=== PATIENT | female | born 1975 | race Hispanic/Latino ===

== ENCOUNTER 2019-02-01 18:36 | Emergency (ER) | payer SELFPAY ==
[2019-02-01] MEDS ORDERED: cloNIDine HCl 0.1 MG TAB ONE (19:43)
[2019-02-01] MEDS ORDERED: NA CHLORIDE 0.9% 500 ML ONE (19:44)
[2019-02-01] MEDS ORDERED: MEPERIDINE HCL 25 MG/0.5 ML ONE (19:44)
[2019-02-01] MEDS ORDERED: ONDANSETRON 4 MG/2 ML VIAL ONE (19:44)
--- NOTE | 2019-02-01 19:56 | RAD REPORT ---
EXAM DESCRIPTION: CT - Head Brain Wo Cont - 02/01/2019 7:42 pm CLINICAL HISTORY: Headache COMPARISON: None. TECHNIQUE: Computed axial tomography of the head was obtained. IV contrast was not requested. All CT scans are performed using dose optimization technique as appropriate and may include automated exposure control or mA/KV adjustment according to patient size. FINDINGS: An intracranial bleed is not seen . The ventricles are normal in caliber. No extra-axial fluid collection is noted. Fluid within the sinuses/ mastoids is not seen. IMPRESSION: No acute intracranial abnormality is seen. If patient's symptoms persist MRI of the bra in would be recommended.
[2019-02-01 20:24] LABS: Urine Blood TRACE (NEG); Urine Glucose NEGATIVE (NEG); Urine Protein 3+ (NEG)
[2019-02-01 20:36] LABS: BUN Blood Urea Nitrogen 16 mg/dL (7-18); Bicarbonate 29 mmol/L (21-32); Glucose Level 92 mg/dL (74-106); Potassium 3.9 mmol/L (3.5-5.1); Sodium Level 142 mmol/L (136-145); Troponin (Emerg Dept Use Only) < 0.02 ng/mL (0.0-0.045)
[2019-02-01 21:16] LABS: Absolute Lymphocytes (CBC) 2.2 K/uL (0.7-4.9); Basophils % 0.8 % (0-1.3); Lymphocytes % 26.7 % (15.3-44.8); MPV 10.1 fL (7.6-11.3); RBC Red Blood Cell Count 4.87 M/uL (3.86-4.86)
--- NOTE | 2019-02-01 22:32 | EDPHYS ---
Physician Documentation [facility] Name: Kiarra Kidd Age: 43 yrs Sex: Female : 1975 Arrival Date: 02/01/2019 Time: 18:39 Bed 16 Private MD: ED Physician Kelton Segovia HPI: 02/01 19:28 This 43 yrs old Female presents to ER via Wheelchair with complaints of High rn Blood Pressure, Nausea, Dizziness, Headache. 19:28 The patient complains of pain to the forehead. The patient describes the headache as rn aching. Onset: The symptoms/episode began/occurred today. Severity of symptoms: At its worst the pain was mild, in the emergency department the pain is unchanged. The symptoms are alleviated by nothing. the symptoms are aggravated by nothing. The patient has not experienced similar symptoms in the past. Reports dizziness and lightheaded that began around 1PM today, then slowly progressed to headache and not feeling well, assoc with nausea. No vomiting. No chest pain/sob. No abd pain. Reports prescribed HTN meds but moved here and no physician so has been out. No focal neurological complaints. No syncope.. 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 - Social history:: Smoking status: Patient/guardian denies using tobacco. - Ebola Screening: : No symptoms or risks identified at this time. - Family history:: not pertinent. - Hospitalizations: : No recent hospitalization is reported. ROS: 19:28 Constitutional: Negative for fever, chills, and weight loss, Eyes: Negative for injury, rn pain, redness, and discharge, Neck: Negative for injury, pain, and swelling, Cardiovascular: Negative for chest pain, palpitations, and edema, Respiratory: Negative for shortness of breath, cough, wheezing, and pleuritic chest pain, Abdomen/GI: Negative for abdominal pain, vomiting, diarrhea, and constipation, MS/Extremity: Negative for injury and deformity, Skin: Negative for injury, rash, and discoloration, Neuro: Negative for weakness, and seizure. Exam: 19:28 Constitutional: This is a well developed, well nourished patient who is awake, alert, rn and in no acute distress. Ambulatory to bed from wheelchair without assistance. Head/Face: Normocephalic, atraumatic. Eyes: Pupils equal round and reactive to light, extra-ocular motions intact. Lids and lashes normal. Conjunctiva and sclera are non-icteric and not injected. Cornea within normal limits. Periorbital areas with no swelling, redness, or edema. ENT: MMM Neck: Trachea midline, no thyromegaly or masses palpated, and no cervical lymphadenopathy. Supple, full range of motion without nuchal rigidity, or vertebral point tenderness. No Meningismus. Cardiovascular: Regular rate and rhythm. No pulse deficits. Respiratory: No increased work of breathing, no retractions or nasal flaring. Abdomen/GI: soft, non-tender MS/ Extremity: Pulses equal, no cyanosis. Neurovascular intact. Full, normal range of motion. Equal circumference. Neuro: Awake and alert, GCS 15, oriented to person, place, time, and situation. Cranial nerves II-XII grossly intact. Motor strength 5/5 in all extremities. Cerebellar exam normal. Normal gait. Decreased sensation to soft touch right face and right arm/leg. 22:32 ECG was reviewed by the Attending Physician. rn Vital Signs: 18:44 BP 171 / 103; Pulse 88; Resp 20; Temp 97.7; Pulse Ox 100% ; Weight 77.11 kg; Height 5 bp ft. 1 in. (154.94 cm); 19:50 BP 171 / 97; Pulse 73; Resp 17; Pulse Ox 98% ; Pain 8/10; rr5 20:57 BP 147 / 87; Pulse 65; Resp 16; Pulse Ox 98% ; Pain 3/10; rr5 22:00 BP 141 / 89; Pulse 75; Resp 17; Pulse Ox 98% ; Pain 3/10; rr5 22:48 BP 139 / 86; Pulse 69; Resp 17; Temp 97.8; Pulse Ox 98% ; rr5 18:44 Body Mass Index 32.12 (77.11 kg, 154.94 cm) bp [place] Coma Score: 22:30 Eye Response: spontaneous(4). Verbal Response: oriented(5). Motor Response: obeys rn commands(6). Total: 15. MDM: 19:18 Patient medically screened. rn 22:30 Differential diagnosis: hypertensive headache, migraine, tension headache, vasomotor rn headache. Differential diagnosis: intracerebral hemorrhage. Data reviewed: vital signs, nurses notes, lab test result(s), EKG, radiologic studies, CT scan, and as a result, I will discharge patient. Counseling: I had a detailed discussion with the patient and/or guardian regarding: the historical points, exam findings, and any diagnostic results supporting the discharge/admit diagnosis, the presence of at least one elevated blood pressure reading (>120/80) during this emergency department visit, lab results, radiology results, the need for outpatient follow up, to return to the emergency department if symptoms worsen or persist or if there are any questions or concerns that arise at home. Special discussion: I have referred the patient to see his PCP for further evaluation of high blood pressure. I discussed with the patient/guardian in detail that at this point there is no indication for admission to the hospital. It is understood, however, that if the symptoms persist or worsen the patient needs to return immediately for re-evaluation. ED course: Symptoms resolved after improvement of BP. Now 147/87. Neg ct without and CTA head/neck. Will dc home. Trop neg. ECG without ischemia.. 02/01 19: Order name: CBC with Diff; Complete Time: 21:22 02/01 19:26 Order name: Basic Metabolic Panel; Complete Time: 20: 02/01 19:26 Order name: Troponin (emerg Dept Use Only); Complete Time: 20:52 02/01 19:26 Order name: Flu; Complete Time: 20:52 02/01 20:00 Order name: Urine Dipstick--Ancillary (enter results); Complete Time: 20:52 [facility] 02/01 20:00 Order name: Urine --Ancillary (enter results); Complete Time: 20:52 [facility] 02/01 19:26 Order name: CT Head Brain wo Cont; Complete Time: 20:52 02/01 19:26 Order name: IV Start; Complete Time: 20:10 02/01 19:26 Order name: EKG; Complete Time: 19:28 02/01 20:52 Order name: CT Head Angio 02/01 19:26 Order name: EKG - Nurse/Tech; Complete Time: 20: 02/01 19:26 Order name: Urine Dipstick-Ancillary (obtain specimen); Complete Time: 19:59 rn 02/01 19: Order name: Urine Test (obtain specimen); Complete Time: 19:59 rn EC:32 Rate is 62 beats/min. Rhythm is regular. QRS [place] is Normal. [place] interval is normal. QRS rn interval is normal. QT interval is normal. No Q waves. T waves are Normal. No ST changes noted. Clinical impression: NSR w/ Non-specific ST/T Changes. Interpreted by me. Reviewed by me. Administered Medications: 19:50 Drug: cloNIDine 0.1 mg Route: PO; rr5 20:50 Follow up: Response: Blood pressure is lowered rr5 19:55 Drug: NS 0.9% 500 ml Route: IV; Rate: bolus; Site: left antecubital; rr5 21:30 Follow up: Response: No adverse reaction; IV Status: Completed infusion; IV Intake: rr5 500ml 19:56 Drug: Zofran 4 mg Route: IVP; Site: left antecubital; rr5 21:00 Follow up: Response: No adverse reaction; Marked relief of symptoms rr5 19:58 Drug: Demerol 25 mg {Note: rass 0.} Route: IVP; Site: left antecubital; rr5 21:00 Follow up: Response: No adverse reaction; Marked relief of symptoms; RASS: Alert and rr5 Calm (0) Disposition: 02/01/19 22:31 Discharged to Home. Impression: Headache, Paresthesia of skin, Hypertension. - Condition is Stable. - Discharge Instructions: Hypertension, Paresthesia. - Prescriptions for losartan- hydrochlorothiazide 50-12.5 mg Oral tablet - take 1 tablet by ORAL route once daily; 60 tablet. - Medication Reconciliation Form, Thank You Letter, Antibiotic Education, Prescription Opioid Use form. - Follow up: Private Physician; When: As needed; Reason: Recheck today's complaints, Re-evaluation by your physician. - Problem is new. - Symptoms have improved. Signatures: Dispatcher [employer] EDMS Kelton Segovia MD MD rn Peltier, Brian, RN RN Hussain Ardon RN RN rr5 Corrections: (The following items were deleted from the chart) 22:52 22:31 02/01/2019 22:31 Discharged to Home. Impression: Headache; Paresthesia of skin; rr5 Hypertension. Condition is Stable. Forms are Medication Reconciliation Form, Thank You Letter, Antibiotic Education, Prescription Opioid Use. Follow up: Private Physician; When: As needed; Reason: Recheck today's complaints, Re-evaluation by your physician. Problem is new. Symptoms have improved. rn
--- NOTE | 2019-02-01 22:32 | ER ---
Nurse's Notes [facility] Name: Kiarra Kidd Age: 43 yrs Sex: Female : 1975 Arrival Date: 02/01/2019 Time: 18:39 Bed 16 Private MD: Diagnosis: Headache;Paresthesia of skin;Hypertension Presentation: 02/01 18:43 Presenting complaint: Patient states: HEADACHE AND DIZZINESS. Transition of care: bp patient was not received from another setting of care. Onset of symptoms was February 01, 2019 at 16:00. Risk Assessment: Do you want to hurt yourself or someone else? Patient reports no desire to harm self or others. Initial Sepsis Screen: Does the patient meet any 2 criteria? No. Patient's initial sepsis screen is negative. Does the patient have a suspected source of infection? No. Patient's initial sepsis screen is negative. Care prior to arrival: None. 18:43 Method Of Arrival: Wheelchair bp 18:43 Acuity: SIRIA 3 bp Triage Assessment: 19:30 General: Appears in no apparent distress. comfortable, Behavior is calm, cooperative, rr5 appropriate for age. Respiratory: the patient has mild shortness of breath. 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 - Social history:: Smoking status: Patient/guardian denies using tobacco. - Ebola Screening: : No symptoms or risks identified at this time. - Family history:: not pertinent. - Hospitalizations: : No recent hospitalization is reported. Screenin:13 Abuse screen: Denies threats or abuse. Denies injuries from another. Nutritional rr5 screening: No deficits noted. Tuberculosis screening: No symptoms or risk factors identified. Fall Risk IV access (20 points). Total Wyman Fall Scale indicates No Risk (0-24 pts). Assessment: 19:30 General: Appears in no apparent distress. uncomfortable. rr5 19:30 Pain: Complains of pain in forhead Pain does not radiate. Pain currently is 8 out of 10 rr5 on a pain scale. Quality of pain is described as aching, Pain began gradually, Is intermittent. Neuro: Level of Consciousness is awake, alert, Oriented to person, place, time, situation, Appropriate for age Reports dizziness, headache frontal area. Cardiovascular: Reports shortness of breath, vomiting, high BP Capillary refill < 3 seconds Patient's skin is warm and dry. Rhythm is sinus rhythm. Respiratory: Reports shortness of breath Airway is patent Respiratory effort is even, unlabored, Respiratory pattern is regular, symmetrical. GI: Abdomen is round obese, Reports nausea, vomiting. : No signs and/or symptoms were reported regarding the genitourinary system. EENT: No signs and/or symptoms were reported regarding the EENT system. Derm: Skin is intact, Skin temperature is warm. Musculoskeletal: Circulation, motion, and sensation intact. Capillary refill < 3 seconds. 19:30 Respiratory: Breath sounds are clear. rr5 20:35 Reassessment: Patient appears in no apparent distress at this time. Patient and/or rr5 family updated on plan of care and expected duration. Pain level reassessed. Patient is alert, oriented x 3, equal unlabored respirations, skin warm/dry/pink. awaiting for result. Patient states feeling better. Patient states symptoms have improved. Pain: Pain currently is 3 out of 10 on a pain scale. 21:05 Reassessment: Patient appears in no apparent distress at this time. Patient is alert, rr5 oriented x 3, equal unlabored respirations, skin warm/dry/pink. send back to CT scan for additional imaging. 22:00 Reassessment: Patient appears in no apparent distress at this time. Patient and/or rr5 family updated on plan of care and expected duration. Pain level reassessed. Patient is alert, oriented x 3, equal unlabored respirations, skin warm/dry/pink. 22:40 Reassessment: Patient appears in no apparent distress at this time. Patient is alert, rr5 oriented x 3, equal unlabored respirations, skin warm/dry/pink. discharge instruction given and explained without complaints made. Patient states feeling better. Patient states symptoms have improved. Vital Signs: 18:44 BP 171 / 103; Pulse 88; Resp 20; Temp 97.7; Pulse Ox 100% ; Weight 77.11 kg; Height 5 bp ft. 1 in. (154.94 cm); 19:50 BP 171 / 97; Pulse 73; Resp 17; Pulse Ox 98% ; Pain 8/10; rr5 20:57 BP 147 / 87; Pulse 65; Resp 16; Pulse Ox 98% ; Pain 3/10; rr5 22:00 BP 141 / 89; Pulse 75; Resp 17; Pulse Ox 98% ; Pain 3/10; rr5 22:48 BP 139 / 86; Pulse 69; Resp 17; Temp 97.8; Pulse Ox 98% ; rr5 18:44 Body Mass Index 32.12 (77.11 kg, 154.94 cm) bp [place] Coma Score: 22:30 Eye Response: spontaneous(4). Verbal Response: oriented(5). Motor Response: obeys rn commands(6). Total: 15. ED Course: 18:39 Patient arrived in ED. mr 18:44 Triage completed. bp 18:44 Arm band placed on right wrist. bp 19:18 Kelton Segovia MD is Attending Physician. rn 19:19 Hussain Dhillon RN is Primary Nurse. rr5 19:30 Patient has correct armband on for positive identification. Placed in gown. Bed in low rr5 position. Call light in reach. Side rails up X2. site monitor on. Pulse ox on. NIBP on. 19:43 CT Head Brain wo Cont In Process Unspecified. EDMS 19:55 Inserted saline lock: 22 gauge in left antecubital area, using aseptic technique. Blood rr5 collected. 21:17 CT Head Angio In Process Unspecified. EDMS 22:49 No provider procedures requiring assistance completed. IV discontinued, intact, rr5 bleeding controlled, No redness/swelling at site. Pressure dressing applied. Administered Medications: 19:50 Drug: cloNIDine 0.1 mg Route: PO; rr5 20:50 Follow up: Response: Blood pressure is lowered rr5 19:55 Drug: NS 0.9% 500 ml Route: IV; Rate: bolus; Site: left antecubital; rr5 21:30 Follow up: Response: No adverse reaction; IV Status: Completed infusion; IV Intake: rr5 500ml 19:56 Drug: Zofran 4 mg Route: IVP; Site: left antecubital; rr5 21:00 Follow up: Response: No adverse reaction; Marked relief of symptoms rr5 19:58 Drug: Demerol 25 mg {Note: rass 0.} Route: IVP; Site: left antecubital; rr5 21:00 Follow up: Response: No adverse reaction; Marked relief of symptoms; RASS: Alert and rr5 Calm (0) Intake: 21:30 IV: 500ml; Total: 500ml. rr5 Outcome: 22:31 Discharge ordered by . rn 22:49 Discharged to home ambulatory, with family. rr5 22:49 Condition: stable 22:49 Discharge instructions given to patient, Instructed on discharge instructions, follow up and referral plans. medication usage, Demonstrated understanding of instructions, follow-up care, medications, Prescriptions given X 1. 22:52 Patient left the ED. rr5 Signatures: Dispatcher [employer] [facility] SjDaniela LucaKelton MD MD rn Peltier, Brian, RN RN bp Roque, Raymond RN RN rr5
[2019-02-01 23:35] VITALS: O2SAT 98
[2019-02-01 23:39] VITALS: BP 139/86; TEMP 97.8
--- NOTE | 2019-02-02 08:28 | EKG ---
Test Date: 2019-02-01 Test Time: 19:53:11 Chips Screen Tender: RR MEASUREMENT RESULTS: Intervals: Rate: 62 VA: 158 QRSD: 90 QT: 422 QTc: 428 [place]: P: 38 VA: 158 QRS: 58 T: 35 INTERPRETIVE STATEMENTS: Normal sinus rhythm Septal infarct, age undetermined Abnormal ECG No previous ECG available for comparison Electronically Signed On 02-02-19 08:28:24 CDT by Remington Taylor
--- NOTE | 2019-02-02 10:17 | RAD REPORT ---
EXAM DESCRIPTION: CT - Head angio - 02/02/2019 2:46 am CLINICAL HISTORY: Hypertension. Headache. TECHNIQUE: Following the administration of intravenous contrast, thin section axial CT angiography i mages of the head were obtained. Coronal and sagittal reformatted images were generated. This exa m was performed according to our departmental dose-optimization program, which includes automated exp osure control, adjustment of the mA and/or kV according to patient size and/or use of iterative recon struction technique. COMPARISON: None. INTRAVENOUS CONTRAST: Not documented. Please refer to medical record. FINDINGS: CTA BRAIN: The internal carotid arteries are unremarkable. The MELL and MCA branches have a normal course and caliber. An anterior communicating artery is seen. Posterior communicating arteries are visualized. There is no evidence of stenosis or aneurysm in the anterior circulation. The basilar and vertebral arteries have a normal course and caliber. The right vertebral artery is dominant. The CHANGE MANAGEMENT FACILITATOR and bilateral SCA branches show no focal abnormalities. The origins of the PICAs are visualized. There is no evidence of stenosis or aneurysm in the posterior circulation. IMPRESSION: 1. Normal study. Electronically signed by: Rohith Shanks MD 02/01/2019 9:29 PM CDT Due to temporary technical issues with the PACS/Fluency reporting system, reports are being signed by the in house radiologist as a courtesy to ensure prompt reporting. The interpreting radiologist is f ully responsible for the content of the report.
== END 2019-02-01 22:52 | disposition home or self-care (01) ==
LOC: ER 18:36
DX: R20.2 Paresthesia of skin (principal); I10 Essential (primary) hypertension
CPT/HCPCS: 36415; 70450; 70496; 80048; 81003; 81025; 84484; 85025; 87804; 93005; 96361; 96374; 96375; 99284; J2175; J2405; Q9967

== ENCOUNTER 2019-07-16 11:34 | Observation (INO) | payer SELFPAY ==
--- NOTE | 2019-07-16 12:15 | RAD REPORT ---
EXAM DESCRIPTION: RAD - Chest Single View - 07/16/2019 12:08 pm CLINICAL HISTORY: CHEST PAIN Chest pain. COMPARISON: No comparisons FINDINGS: Portable technique limits examination quality. The lungs are grossly clear. The heart is normal in size. No displaced fractures. IMPRESSION: No acute intrathoracic process suspected.
[2019-07-16 12:22] LABS: Protime INR 1.03
[2019-07-16 12:28] LABS: Absolute Lymphocytes (CBC) 1.5 K/uL (0.7-4.9); Basophils % 0.3 % (0-1.3); Hematocrit 37.9 % (36.0-45.0); Lymphocytes % 24.4 % (15.3-44.8); MPV 9.5 fL (7.6-11.3); RBC Red Blood Cell Count 4.71 M/uL (3.86-4.86)
[2019-07-16 12:39] LABS: ALT/SGPT 40 U/L (12-78); AST/SGOT 30 U/L (15-37); Albumin 3.3 g/dL (3.4-5.0); Alkaline Phosphatase 120 U/L (45-117); BUN Blood Urea Nitrogen 12 mg/dL (7-18); Bicarbonate 27 mmol/L (21-32); Bilirubin Direct 0.2 mg/dL (0-0.2); Bilirubin Total 0.5 mg/dL (0.2-1.0); Glucose Level 88 mg/dL (74-106); Magnesium 1.9 mg/dL (1.8-2.4); NT PRO-BNP 32 pg/mL (<125); Potassium 3.6 mmol/L (3.5-5.1); Protein, Total 7.8 g/dL (6.4-8.2); Sodium Level 140 mmol/L (136-145); Troponin (Emerg Dept Use Only) < 0.02 ng/mL (0.0-0.045)
--- NOTE | 2019-07-16 12:53 | ER ---
Nurse's Notes [facility] Name: Kiarra Kidd Age: 44 yrs Sex: Female : 1975 Arrival Date: 07/16/2019 Time: 11:35 Bed 2 Private MD: Diagnosis: Chest pain, unspecified;Essential (primary) hypertension Presentation: 07/15 11:35 Chief complaint: EMS states: pt at home sleeping, had been sick with diarrhea and tw2 complaining of epigastric pain now, ekg was normal, bp initially was 153/90 hr 80, we gave 324 mg aspirin and 1 spray nitro and it relieved her pain, she is stating it comes in waves, he has hx hypertension takes metoprolol and lisinopril. Coronavirus screen: The patient has NOT traveled to a country currently being monitored by the CDC within the last 14 days. Ebola Screen: Patient denies travel to an Ebola-affected area in the 21 days before illness onset. Initial Sepsis Screen: Does the patient meet any 2 criteria? No. Patient's initial sepsis screen is negative. Does the patient have a suspected source of infection? No. Patient's initial sepsis screen is negative. Risk Assessment: Do you want to hurt yourself or someone else? Patient reports no desire to harm self or others. 11:35 Method Of Arrival: EMS: [facility] tw2 11:35 Acuity: SIRIA 3 tw2 15:22 Onset of symptoms was July 16, 2019. tw2 Triage Assessment: 11:39 General: Appears in no apparent distress. Behavior is calm, cooperative, appropriate tw2 for age. Pain: Complains of pain in diaphragm and xyphoid area. Cardiovascular: Reports chest pain. GI: Reports epigastric pain. 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 tw2 Historical: - Allergies: 11:40 No Known Allergies; tw2 - Home Meds: 11:40 Metoprolol Tartrate Oral [Active]; Lisinopril Oral [Active]; tw2 - PMHx: 11:40 Hypertension; tw2 - PSHx: 11:40 None; tw2 - Immunization history:: Adult Immunizations. - Social history:: Smoking status: . - Family history:: not pertinent. Screenin:14 Abuse screen: Denies threats or abuse. Denies injuries from another. Nutritional jl7 screening: No deficits noted. Tuberculosis screening: No symptoms or risk factors identified. Fall Risk IV access (20 points). Total Wyman Fall Scale indicates No Risk (0-24 pts). Assessment: 11:35 General: Appears in no apparent distress. uncomfortable, Behavior is calm, cooperative, jl7 appropriate for age. Pain: Complains of pain in xyphoid area Pain does not radiate. Pain currently is 5 out of 10 on a pain scale. Pain began suddenly. Neuro: Level of Consciousness is awake, alert, obeys commands, Oriented to person, place, time, situation. Cardiovascular: Patient's skin is warm and dry. Respiratory: Airway is patent Respiratory effort is even, unlabored, Respiratory pattern is regular, symmetrical. Derm: Skin is pink, warm \T\ dry. 12:30 Reassessment: Patient appears in no apparent distress at this time. No changes from jl7 previously documented assessment. Patient and/or family updated on plan of care and expected duration. Pain level reassessed. Patient is alert, oriented x 3, equal unlabored respirations, skin warm/dry/pink. 13:29 Reassessment: Patient appears in no apparent distress at this time. No changes from tw2 previously documented assessment. Patient and/or family updated on plan of care and expected duration. Pain level reassessed. Patient is alert, oriented x 3, equal unlabored respirations, skin warm/dry/pink. 14:11 Reassessment: Patient appears in no apparent distress at this time. No changes from tw2 previously documented assessment. Patient and/or family updated on plan of care and expected duration. Pain level reassessed. Patient is alert, oriented x 3, equal unlabored respirations, skin warm/dry/pink. 14:32 Pain: Pain does not radiate. Pain began suddenly. tw2 14:53 Reassessment: Dr. Lin Hospitalist at bedside at this time. tw2 15:42 Reassessment: Patient appears in no apparent distress at this time. No changes from tw2 previously documented assessment. Patient and/or family updated on plan of care and expected duration. Pain level reassessed. Patient is alert, oriented x 3, equal unlabored respirations, skin warm/dry/pink. Vital Signs: 11:35 BP 139 / 93; Pulse 85; Resp 17; Temp 97.6(TE); Pulse Ox 98% on R/A; Weight 85.28 kg; tw2 Height 5 ft. 1 in. (154.94 cm); Pain 5/10; 12:13 BP 144 / 92; Pulse 81; Resp 16 S; Pulse Ox 98% on R/A; Pain 5/10; jl7 12:59 BP 135 / 94; Pulse 87; Resp 16 S; Pulse Ox 98% on R/A; jl7 13:29 BP 153 / 99; Pulse 80; Resp 18; Pulse Ox 100% on R/A; tw2 14:11 BP 137 / 103; Pulse 79; Resp 17; Pulse Ox 99% on R/A; tw2 14:54 BP 136 / 88; Pulse 77; Resp 17; Pulse Ox 100% on R/A; tw2 15:42 BP 120 / 99; Pulse 90; Resp 17; Pulse Ox 99% on R/A; tw2 11:35 Body Mass Index 35.52 (85.28 kg, 154.94 cm) tw2 ED Course: 11:35 Patient arrived in ED. tw2 11:35 Bed in low position. Call light in reach. monitor car operator on. Pulse ox on. NIBP on. tw2 Warm blanket given. 11:36 Patient maintains SpO2 saturation greater than 95% on room air. tw2 11:39 Triage completed. tw2 11:39 Arm band placed on. tw2 11:44 Joe Camargo MD is Attending Physician. grace 11:47 EKG done, by ED staff, reviewed by Joe Camargo MD. jb1 12:06 Naresh Ojeda RN is Primary Nurse. jl7 12:14 Initial lab(s) drawn, by me, sent to lab. Maintain EMS IV. Dressing intact. Good blood jl7 return noted. Site clean \T\ dry. Gauge \T\ site: 18 left AC. 12:51 Kenney Campbell DO is Hospitalizing Provider. grace 12:56 Schuyler Lin MD is Hospitalizing Provider. grace 14:31 Awaiting: unsuccessful attempt to call report at this time. tw2 15:00 Awaiting: unsuccessful attempt to call report at this time, was told GEETA JONES is the nurse tw2 and will have to call me back. 15:21 No provider procedures requiring assistance completed. Patient admitted, IV remains in tw2 place. intact, No redness/swelling at site. Administered Medications: 12:13 Not Given (324 mg Aspirin adminstered by EMS): Aspirin 162 mg PO once jl7 14:00 Drug: Lopressor 25 mg Route: PO; tw2 14:30 Follow up: Response: No adverse reaction jl7 14:00 Drug: Zofran (Ondansetron) 4 mg Route: IVP; Site: left antecubital; tw2 14:30 Follow up: Response: No adverse reaction jl7 14:02 Drug: morphine 2 mg Route: IVP; Site: left antecubital; tw2 14:30 Follow up: Response: No adverse reaction; Pain is decreased jl7 14:05 Drug: Lovenox 1 mg/kg Route: Sub-Q; Site: left lower abdomen; tw2 14:11 Follow up: Response: No adverse reaction tw2 14:10 Drug: Pepcid 20 mg Route: IVP; Site: left antecubital; tw2 14:11 Follow up: Response: No adverse reaction tw2 Outcome: 12:52 Decision to Hospitalize by Provider. grace 15:21 Admitted to Tele accompanied by tech, family with patient, via wheelchair, room 228, tw2 with chart, Report called to GEETA JONES 15:21 Condition: stable 15:21 Discharge instructions given to patient, family, Instructed on the need for admit, Demonstrated understanding of instructions. 15:42 Patient left the ED. tw2 Signatures: Rio Cooper jb1 Joe Camargo MD MD cha Wise, Tara, RN RN tw2 Naresh Ojeda RN RN jl7
--- NOTE | 2019-07-16 12:53 | EDPHYS ---
Physician Documentation [facility] Name: Kiarra Kidd Age: 44 yrs Sex: Female : 1975 Arrival Date: 07/16/2019 Time: 11:35 Bed 2 Private MD: ED Physician Joe Camargo HPI: 07/15 12:48 This 44 yrs old Female presents to ER via EMS with complaints of Chest Pain > grace 32 y/o. 12:48 The patient or guardian reports chest pain that is located primarily in the substernal grace area. Onset: just prior to arrival, this morning. The pain does not radiate. Associated signs and symptoms: Pertinent positives: nausea, shortness of breath. The chest pain is described as a heaviness, a pressure. Modifying factors: The symptoms are alleviated by nothing. the symptoms are aggravated by nothing. Severity of pain: At its worst the pain was mild moderate in the emergency department the pain has improved moderately. The patient has not experienced similar symptoms in the past. 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 tw2 Historical: - Allergies: 11:40 No Known Allergies; tw2 - Home Meds: 11:40 Metoprolol Tartrate Oral [Active]; Lisinopril Oral [Active]; tw2 - PMHx: 11:40 Hypertension; tw2 - PSHx: 11:40 None; tw2 - Immunization history:: Adult Immunizations. - Social history:: Smoking status: . - Family history:: not pertinent. ROS: 12:48 Constitutional: Negative for fever, chills, and weight loss, Eyes: Negative for injury, grace pain, redness, and discharge, ENT: Negative for injury, pain, and discharge, Neck: Negative for injury, pain, and swelling, Respiratory: Negative for shortness of breath, cough, wheezing, and pleuritic chest pain, Abdomen/GI: Negative for abdominal pain, nausea, vomiting, diarrhea, and constipation, Back: Negative for injury and pain, : Negative for injury, bleeding, discharge, and swelling, MS/Extremity: Negative for injury and deformity, Skin: Negative for injury, rash, and discoloration, Neuro: Negative for headache, weakness, numbness, tingling, and seizure, Psych: Negative for depression, anxiety, suicide ideation, homicidal ideation, and hallucinations, Allergy/Immunology: Negative for hives, rash, and allergies, Endocrine: Negative for neck swelling, polydipsia, polyuria, polyphagia, and marked weight changes, Hematologic/Lymphatic: Negative for swollen nodes, abnormal bleeding, and unusual bruising. 12:48 Cardiovascular: Positive for chest pain, of the chest. Exam: 12:48 Constitutional: This is a well developed, well nourished patient who is awake, alert, grace and in no acute distress. Head/Face: Normocephalic, atraumatic. Eyes: Pupils equal round and reactive to light, extra-ocular motions intact. Lids and lashes normal. Conjunctiva and sclera are non-icteric and not injected. Cornea within normal limits. Periorbital areas with no swelling, redness, or edema. ENT: Nares patent. No nasal discharge, no septal abnormalities noted. Tympanic membranes are normal and external auditory canals are clear. Oropharynx with no redness, swelling, or masses, exudates, or evidence of obstruction, uvula midline. Mucous membranes moist. Neck: Trachea midline, no thyromegaly or masses palpated, and no cervical lymphadenopathy. Supple, full range of motion without nuchal rigidity, or vertebral point tenderness. No Meningismus. Chest/axilla: Normal chest wall appearance and motion. Nontender with no deformity. No lesions are appreciated. Cardiovascular: Regular rate and rhythm with a normal S1 and S2. No gallops, murmurs, or rubs. Normal PMI, no JVD. No pulse deficits. Respiratory: Lungs have equal breath sounds bilaterally, clear to auscultation and percussion. No rales, rhonchi or wheezes noted. No increased work of breathing, no retractions or nasal flaring. Abdomen/GI: Soft, non-tender, with normal bowel sounds. No distension or tympany. No guarding or rebound. No evidence of tenderness throughout. Back: No spinal tenderness. No costovertebral tenderness. Full range of motion. Skin: Warm, dry with normal turgor. Normal color with no rashes, no lesions, and no evidence of cellulitis. MS/ Extremity: Pulses equal, no cyanosis. Neurovascular intact. Full, normal range of motion. Neuro: Awake and alert, GCS 15, oriented to person, place, time, and situation. Cranial nerves II-XII grossly intact. Motor strength 5/5 in all extremities. Sensory grossly intact. Cerebellar exam normal. Normal gait. Psych: Awake, alert, with orientation to person, place and time. Behavior, mood, and affect are within normal limits. 12:48 Musculoskeletal/extremity: DVT Exam: No signs of deep vein thrombosis. no pain, no swelling, no tenderness, negative Homans' sign noted on exam, no appreciated bluish discoloration, no erythema, no increased warmth. Vital Signs: 11:35 BP 139 / 93; Pulse 85; Resp 17; Temp 97.6(TE); Pulse Ox 98% on R/A; Weight 85.28 kg; tw2 Height 5 ft. 1 in. (154.94 cm); Pain 5/10; 12:13 BP 144 / 92; Pulse 81; Resp 16 S; Pulse Ox 98% on R/A; Pain 5/10; jl7 12:59 BP 135 / 94; Pulse 87; Resp 16 S; Pulse Ox 98% on R/A; jl7 13:29 BP 153 / 99; Pulse 80; Resp 18; Pulse Ox 100% on R/A; tw2 14:11 BP 137 / 103; Pulse 79; Resp 17; Pulse Ox 99% on R/A; tw2 14:54 BP 136 / 88; Pulse 77; Resp 17; Pulse Ox 100% on R/A; tw2 15:42 BP 120 / 99; Pulse 90; Resp 17; Pulse Ox 99% on R/A; tw2 11:35 Body Mass Index 35.52 (85.28 kg, 154.94 cm) tw2 MDM: 11:44 Patient medically screened. [facility] 12:50 Data reviewed: vital signs, nurses notes, lab test result(s), EKG, radiologic studies, [facility] CT scan, plain films. 07/15 11:37 Order name: Basic Metabolic Panel [facility] 07/15 11:37 Order name: CBC with Diff [facility] 07/15 11:37 Order name: LFT's [facility] 07/15 11:37 Order name: Magnesium [facility] 07/15 11:37 Order name: NT PRO-BNP [facility] 07/15 11:37 Order name: PT-INR [facility] 07/15 11:37 Order name: Troponin (emerg Dept Use Only) [facility] 07/15 12:04 Order name: Lipase grace 07/15 12:26 Order name: Protime (+INR); Complete Time: 12:48 EDMS 07/15 12:32 Order name: CBC with Automated Diff; Complete Time: 12:48 EDMS 07/15 12:36 Order name: Lipase; Complete Time: 12:48 EDMS 07/15 12:41 Order name: Basic Metabolic Panel; Complete Time: 12:48 EDMS 07/15 12:41 Order name: Liver (Hepatic) Function; Complete Time: 12:48 EDMS 07/15 12:41 Order name: Troponin (Emerg Dept Use Only); Complete Time: 12:48 EDMS 07/15 11:37 Order name: XRAY Chest (1 view) 7 07/15 11:37 Order name: EKG; Complete Time: 11:38 7 07/15 11:37 Order name: Cardiac monitoring; Complete Time: 11:38 07/15 11:37 Order name: EKG - Nurse/Tech; Complete Time: 11:47 7 07/15 12:16 Order name: RAD; Complete Time: 12:48 EDMS 07/15 12:41 Order name: NT PRO-BNP; Complete Time: 12:48 EDMS 07/15 12:41 Order name: Magnesium; Complete Time: 12:48 EDMS 07/15 12:48 Order name: CT Chest For PE Angio [facility] 07/15 13:29 Order name: CT; Complete Time: 13:47 EDMS 07/15 14:45 Order name: Test Serum, [facility] EDMS 07/15 11:37 Order name: IV Saline Lock; Complete Time: 11:38 07/15 11:37 Order name: Labs collected and sent; Complete Time: 12:12 07/15 11:37 Order name: O2 Per Protocol; Complete Time: 11:38 07/15 11:37 Order name: O2 Sat Monitoring; Complete Time: 11:38 7 Administered Medications: 12:13 Not Given (324 mg Aspirin adminstered by EMS): Aspirin 162 mg PO once jl7 14:00 Drug: Lopressor 25 mg Route: PO; tw2 14:30 Follow up: Response: No adverse reaction jl7 14:00 Drug: Zofran (Ondansetron) 4 mg Route: IVP; Site: left antecubital; tw2 14:30 Follow up: Response: No adverse reaction jl7 14:02 Drug: morphine 2 mg Route: IVP; Site: left antecubital; tw2 14:30 Follow up: Response: No adverse reaction; Pain is decreased jl7 14:05 Drug: Lovenox 1 mg/kg Route: Sub-Q; Site: left lower abdomen; tw2 14:11 Follow up: Response: No adverse reaction tw2 14:10 Drug: Pepcid 20 mg Route: IVP; Site: left antecubital; tw2 14:11 Follow up: Response: No adverse reaction tw2 Disposition: 07/16/19 12:52 Hospitalization ordered by Schuyler Lin for Observation. Preliminary diagnosis are Chest pain, unspecified, Essential (primary) hypertension. - Bed requested for Telemetry/MedSurg (observation). - Status is Observation. tw2 - Condition is Stable. - Problem is new. - Symptoms have improved. Signatures: Dispatcher [employer] EDJoe Parham MD MD cha Wise, Tara RN RN tw2 Naresh Ojeda RN RN jl7 Vickie Coy Corrections: (The following items were deleted from the chart) 12:56 12:52 Hospitalization Ordered by Kenney Campbell DO for Observation. Preliminary grace diagnosis is Chest pain, unspecified; Essential (primary) hypertension. Bed requested for Telemetry/MedSurg (observation). Status is Observation. Condition is Stable. Problem is new. Symptoms have improved. grace 13:59 12:56 07/16/2019 12:52 Hospitalization Ordered by Schuyler Lin MD for Observation. eb Preliminary diagnosis is Chest pain, unspecified; Essential (primary) hypertension. Bed requested for Telemetry/MedSurg (observation). Status is Observation. Condition is Stable. Problem is new. Symptoms have improved. grace 14:04 13:59 07/16/2019 12:52 Hospitalization Ordered by Schuyler Lin MD for Observation. eb Preliminary diagnosis is Chest pain, unspecified; Essential (primary) hypertension. Bed requested for Telemetry/MedSurg (observation). Status is Observation. Condition is Stable. Problem is new. Symptoms have improved. eb 15:42 14:04 07/16/2019 12:52 Hospitalization Ordered by Schuyler Lin MD for Observation. tw2 Preliminary diagnosis is Chest pain, unspecified; Essential (primary) hypertension. Bed requested for Telemetry/MedSurg (observation). Status is Observation. Condition is Stable. Problem is new. Symptoms have improved. eb
--- NOTE | 2019-07-16 13:25 | RAD REPORT ---
EXAM DESCRIPTION: CT - Chest For Pe Angio - 07/16/2019 1:18 pm CLINICAL HISTORY: Chest pain COMPARISON: None. TECHNIQUE: Dynamically enhanced axial 3 mm thick images of the chest were obtained during administra tion of <100> mL Isovue 370 IV contrast. Coronal and oblique reconstruction images were generated and reviewed. Exam utilizes a protocol for optimal evaluation of pulmonary arterial tree. Maximum intensity projections 3D imaging was utilized All CT scans are performed using dose optimization technique as appropriate and may include automated exposure control or mA/KV adjustment according to patient size. FINDINGS: A pulmonary embolus is not seen. A thoracic aortic aneurysm is not noted. A pleural effusion is not seen. A pericardial effusion is not seen. A lung consolidation is not present. Fatty liver IMPRESSION: Negative for a pulmonary embolism.
[2019-07-16] MEDS ORDERED: METOPROLOL TAR 25 MG TAB ONE (13:43)
[2019-07-16] MEDS ORDERED: ONDANSETRON 4 MG/2 ML VIAL ONE (13:43)
[2019-07-16] MEDS ORDERED: MORPHINE 2 MG/ML SYR ONE (13:43)
--- NOTE | 2019-07-16 13:43 | EKG ---
Test Date: 2019-07-16 Test Time: 11:47:40 Butt Trimmer: YVAN MEASUREMENT RESULTS: Intervals: Rate: 76 UT: 158 QRSD: 86 QT: 404 QTc: 454 [place]: P: 25 UT: 158 QRS: 20 T: 20 INTERPRETIVE STATEMENTS: Normal sinus rhythm with sinus arrhythmia Normal ECG Compared to ECG 02/01/2019 19:53:11 Myocardial infarct finding no longer present Electronically Signed On 07-16-19 13:43:00 CORPORATE REAL ESTATE SPECIALIST by João Medina
[2019-07-16] MEDS ORDERED: ENOXAPARIN 80 MG/0.8 ML SQ ONE (13:44)
[2019-07-16] MEDS ORDERED: FAMOTIDINE 20 MG/2 ML VIAL IV ONE (13:44)
[2019-07-16] MEDS ORDERED: MORPHINE 2 MG/ML SYR IV PRN (15:57)
[2019-07-16] MEDS ORDERED: NITROGLYCERIN 0.4 MG/TAB SL PRN (15:57)
[2019-07-16] MEDS ORDERED: ACETAMINOPHEN 500 MG TAB PO PRN (15:57)
[2019-07-16 16:03] VITALS: TEMP 97.6
[2019-07-16 16:17] VITALS: BMI 35.5
[2019-07-16 16:24] VITALS: BP 153/89
[2019-07-16 18:22] VITALS: O2SAT 100
--- NOTE | 2019-07-16 20:08 | CON ---
History Of Present Illness: Mrs. Kidd is 44. She had chest pain and came to the hospital. Her phil[address] pain was hurting this morning that she was awakening. It was sharp central chest cause immediate nausea and then every time she took a breath, it hurt intensely. After about an hour, it went away c ompletely and she has been feeling fine. Her cardiac enzymes are completely normal and her EKG likew ise is normal. The patient has never had myocardial infarction, stroke, or diabetes. She uses no to bacco. She takes her blood pressure medicine. She is 3, para 3. No gestational diabetes or hypertension. Allergies: SHE HAS NO ALLERGIES. Past Surgical History: She has a previous history of gallbladder surgery. Outpatient Medications: Metoprolol 25 b.i.d. Physical Examination: Measurements: 5 feet 1 inch, 188 pounds. HEENT: Normal. Carotids, no bruit. Lungs: Clear. Cardiac: Exam normal. No friction rub. Abdomen: Soft. Extremities: Normal. No cyanosis, clubbing, or edema. Distal pulses normal. Laboratory Data: Within normal limits. Assessment And Plan: I believe Mrs. Kidd is being asymptomatic now, could be discharged home and trujillo ve an outpatient stress test. She should probably be on antacids and consider undergoing endoscopy to look at her stomach and esophagus and . PEREZ/NICOLAS Voice ID: [id number] Report ID: [id number]
[2019-07-16] MEDS ORDERED: ATORVASTATIN 40 MG TAB PO SCH (21:00)
[2019-07-16] MEDS ORDERED: METOPROLOL TAR 25 MG TAB PO SCH (21:00)
--- NOTE | 2019-07-16 21:36 | HP ---
Date of Admission: 07/16/2019 Consultants: Dr. Medina, Cardiology. Chief Complaint: Chest pain. History Of Present Illness: Patient is a 44-year-old female with past medical history of hypertension, comes in with chest pain of 1 day duration. Patient was in her usual state of health and had sudden onset of substernal chest pain radiating to the left and right side of her chest. No nausea, vomiting. Patient did have some nausea, but no vomiting, diaphoresis, or palpitations. Patient has not experienced this type of pain in the past. Symptoms are constant, moderate, progressively worsening. Patient called EMS and she was given some aspirin on site, which helped relieve her pain. However, the pain shortly returned. In the ER, her workup revealed negative troponin level. EKG did not show any acute ST elevation or T-wave inversions. Her chest x-ray was negative. CT angio did not show any pulmonary embolism. Patient was referred for admission. When seen in the ER, she was still having some symptoms, otherwise is awake, alert, and oriented x3. Past Medical History: Hypertension. Past Surgical History: Cholecystectomy. Allergies: NO KNOWN DRUG ALLERGIES. 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 Family History: Patient states father had HI at the age of 45 and mother has hypertension. Review of Systems: Ten-point system reviewed, negative except as per HPI. Physical Examination: Vital Signs: Blood pressure 139/93, respirations 17, pulse 85, temperature 97.6 , O2 98% on room air, BMI 35.5. General: Awake, alert, and oriented x3, ill-appearing female, obese, BMI 35. HEENT: Normocephalic, atraumatic. PERRLA. EOMI. Moist mucous membranes. Oropharynx is clear. Conjunctivae are anicteric. Neck: Supple. No JVD. Trachea midline. CV: S1, S2. Regular rate and rhythm. Peripheral pulses present. Respiratory: Moving air well bilaterally. No wheezing or stridor. No use of accessory muscles. Gastrointestinal: Abdomen is soft, nontender, nondistended. Positive bowel sounds. Extremities: No clubbing, cyanosis, or edema. Neurologic: Nonfocal. Cranial nerves 2 through 12 intact grossly. No focal neurological deficit. Speech is normal. Strength is symmetric bilateral upper and lower extremities. Skin: No rashes. Normal skin turgor. Psych: Mood is okay. Affect is full. Insight and judgment are good. Laboratory Data: Sodium 140, potassium 3.6, chloride 109, CO2 of 27, BUN 12, creatinine 1.07, glucose 88, calcium 8.7, magnesium 1.9. Troponin less than 0.02. Serum test is negative. INR 1.03. WBC 6.2, H and H 12.2 and 37.9, platelets 227. CT angio chest, fatty liver disease negative for PE. Chest x-ray personally reviewed shows no acute intrathoracic process suspected. Assessment: A 44-year-old female with, 1. Chest pain. Patient has risk factors including obesity, hypertension, and strong family history. Father had HI at age of 45. We will start on chest pain guidelines. Obtain serial cardiac enzymes and EKG. Consult Cardiology. We will obtain echocardiogram, nitroglycerin and morphine p.r.n. 2. Essential hypertension. We will resume home medications as appropriate. 3. Obesity, BMI 35.5. Plan: Admit patient to Med-Surg, place as observation. If echocardiogram and repeat cardiac enzymes are negative, we will discharge later today in the evening. We will discuss with machinist apprentice if studies are still pending and with Cardiology. ADDENDUM: Spoke to Dr. Medina. He evaluated the patient. He felt that she is low risk. Patient has been symptom free since admission to ER. Her VS are stable. Repeat troponin level is negative. This is likely atypical chest pain. Will DC home for out pt cardiology stress test, echo and give trial of antiacids. Return to ER for worsening condition /NICOLAS Voice ID: [id number] [id number]
[2019-07-17] MEDS ORDERED: lisinopriL 10 MG TAB PO SCH (09:00)
[2019-07-17] MEDS ORDERED: ASPIRIN EC 81 MG TAB PO SCH (09:00)
[2019-07-17] MEDS ORDERED: ENOXAPARIN 40 MG/0.4 ML SQ SCH (09:00)
== END 2019-07-16 20:55 | disposition home or self-care (01) ==
LOC: ER 11:34 → 2ND 13:29 → 4TH 18:09
PROVIDERS: ADMIT Family Medicine; ATTEND Family Medicine
DX: R07.9 Chest pain, unspecified (principal); I10 Essential (primary) hypertension; Z79.899 Other long term (current) drug therapy; Z82.49 Family history of ischemic heart disease and other diseases of the circulatory system; E66.9 Obesity, unspecified; Z68.35 Body mass index [BMI] 35.0-35.9, adult
CPT/HCPCS: 36415; 71045; 71275; 80048; 80076; 83690; 83735; 83880; 84484; 84703; 85025; 85610; 93005; 94760; 96372; 96374; 96375; 99285; G0378; J1650; J2270; J2405; Q9967

== ENCOUNTER 2021-06-25 08:15 | Emergency (ER) | payer SELFPAY ==
[2021-06-25 09:07] LABS: Absolute Lymphocytes (CBC) 1.8 K/uL (0.7-4.9); Hematocrit 38.8 % (36.0-45.0); MPV 9.3 fL (7.6-11.3); RBC Red Blood Cell Count 4.67 M/uL (3.86-4.86)
[2021-06-25 09:08] LABS: Protime INR 0.87
[2021-06-25] MEDS ORDERED: ONDANSETRON 4 MG/2 ML VIAL ONE (09:08)
[2021-06-25] MEDS ORDERED: MORPHINE 4 MG/ML SYR ONE (09:08)
[2021-06-25 09:23] LABS: ALT/SGPT 47 U/L (12-78); AST/SGOT 23 U/L (15-37); Albumin 3.1 g/dL (3.4-5.0); Alkaline Phosphatase 118 U/L (45-117); BUN Blood Urea Nitrogen 18 mg/dL (7-18); Bicarbonate 24 mmol/L (21-32); Bilirubin Direct < 0.1 mg/dL (0-0.2); Bilirubin Total 0.2 mg/dL (0.2-1.0); Glucose Level 95 mg/dL (74-106); Magnesium 2.1 mg/dL (1.8-2.4); NT PRO-BNP 74 pg/mL (<125); Protein, Total 7.5 g/dL (6.4-8.2); Sodium Level 139 mmol/L (136-145)
--- NOTE | 2021-06-25 09:52 | RAD REPORT ---
EXAM DESCRIPTION: CT - Chest For Pe Angio - 06/25/2021 9:44 am CLINICAL HISTORY: elevated d-dimer, chest pain COMPARISON: Chest For Pe Angio dated 07/16/2019 FINDINGS: Chest Wall: No suspicious thyroid nodules or pathologic lymphadenopathy. Lungs: No acute abnormality. Pleura: No significant effusions or pneumothorax. Mediastinum/joshua: No pathologic lymphadenopathy. Pulmonary arteries/Aorta: No filling defect identified. No aortic aneurysm. Heart: No significant pericardial effusion. Normal heart size. Upper abdomen: Hepatic steatosis. Cholecystectomy. Bones: No acute abnormality. All CT scans are performed using dose optimization technique as appropriate and may include automated exposure control or mA/KV adjustment according to patient size. IMPRESSION: Negative for pulmonary embolism. No acute findings within the chest.
--- NOTE | 2021-06-25 09:56 | RAD REPORT ---
EXAM DESCRIPTION: RAD - Chest Single View - 06/25/2021 9:51 am CLINICAL HISTORY: CHEST PAIN COMPARISON: Chest Single View dated 07/16/2019 FINDINGS: Lines: None. Lungs: No evidence of edema or pneumonia. Pleural: No significant pleural effusions or pneumothorax. Cardiac: The heart size is within normal limits. Bones: No acute fractures. Other: IMPRESSION: No acute cardiopulmonary disease.
--- NOTE | 2021-06-25 12:07 | EDPHYS ---
Physician Documentation [facility] Name: Kiarra Kidd Age: 46 yrs Sex: Female : 1975 Arrival Date: 06/25/2021 Time: 08:16 Bed 14 Private MD: Darron Cronin R ED Physician Kelton Segovia HPI: 06/25 08:33 This 46 yrs old Female presents to ER via Ambulatory with complaints of Chest jmm Pain, Back Pain. 08:33 The patient or guardian reports chest pain that is located primarily in the substernal [facility] area. Onset: 4 day(s) ago. The pain radiates to left back. Associated signs and symptoms: Pertinent negatives: shortness of breath. Modifying factors: The patient symptoms are alleviated by nothing, the patient symptoms are aggravated by nothing. This is a 46-year-old female with history of hypertension that presents emerged from with complaints of left-sided chest pain she describes as burning which radiates to the back. Symptoms began this past and have been constant since. Patient also states she does have a sensation of numbness that alternates with the pain. 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 - Social history:: Smoking status: Patient denies any tobacco usage or history of. ROS: 08:33 Constitutional: Negative for fever, chills, and weight loss. jmm 08:33 Cardiovascular: Positive for chest pain. 08:33 All other systems are negative. Exam: 08:33 Constitutional: This is a well developed, well nourished patient who is awake, alert, jmm and in no acute distress. Head/Face: atraumatic. Eyes: EOMI, no conjunctival erythema appreciated ENT: Moist Mucus Membranes Neck: Trachea midline, Supple Chest/axilla: Normal chest wall appearance and motion. Cardiovascular: Regular rate and rhythm. No edema appreciated Respiratory: Normal respirations, no respiratory distress appreciated 08:33 Skin: General appearance color normal MS/ Extremity: Moves all extremities, no obvious deformities appreciated, no edema noted to the lower extremities Neuro: Awake and alert Psych: Behavior is normal, Mood is normal, Patient is cooperative and pleasant 08:33 Abdomen/GI: Inspection: abdomen appears normal, Bowel sounds: normal, Palpation: abdomen is soft and non-tender, in all quadrants. 08:33 Back: CVA tenderness, is absent. Vital Signs: 08:37 BP 162 / 100; Pulse 80; Resp 12; Pulse Ox 98% ; vg1 08:45 BP 157 / 114; Pulse 90; Resp 12; Temp 97.7; Pulse Ox 100% ; Weight 81.65 kg; Height 5 vg1 ft. 1 in. (154.94 cm); Pain 9/10; 09:00 BP 169 / 98; Pulse 78; Resp 18; Pulse Ox 98% ; vg1 10:00 BP 152 / 92; Pulse 74; Resp 14; Pulse Ox 96% on R/A; vg1 11:00 BP 153 / 97; Pulse 76; Resp 18; Pulse Ox 99% ; vg1 08:45 Body Mass Index 34.01 (81.65 kg, 154.94 cm) 1 MDM: 08:49 Patient medically screened. [facility] 12:04 Data reviewed: vital signs, nurses notes. Counseling: I had a detailed discussion with [facility] the patient and/or guardian regarding: the historical points, exam findings, and any diagnostic results supporting the discharge/admit diagnosis, lab results, radiology results, the need for outpatient follow up, to return to the emergency department if symptoms worsen or persist or if there are any questions or concerns that arise at home. ED course: Cardiac markers unremarkable. Pain is been constant today. Do not currently suspect ACS. CT a of the chest negative for PE. Patient advised follow-up with cardiology for further evaluation. Patient understood and agrees plan of care.. 06/25 08:33 Order name: Basic Metabolic Panel [facility] 06/25 08:33 Order name: CBC with Diff [facility] 06/25 08:33 Order name: LFT's; Complete Time: 09:25 [facility] 06/25 08:33 Order name: Magnesium; Complete Time: 09:25 [facility] 06/25 08:33 Order name: NT PRO-BNP; Complete Time: 09:25 [facility] 06/25 08:33 Order name: PT-INR; Complete Time: 09:09 [facility] 06/25 08:33 Order name: Troponin HS; Complete Time: 09:25 [facility] 06/25 08:33 Order name: XRAY Chest (1 view); Complete Time: 09:57 [facility] 06/25 08:34 Order name: Basic Metabolic Panel; Complete Time: 09:25 [facility] 06/25 08:34 Order name: CBC with Automated Diff; Complete Time: 09:15 [facility]PA 06/25 08:54 Order name: D-Dimer [facility] 06/25 08:55 Order name: D-Dimer; Complete Time: 09:25 [facility]PA 06/25 09:26 Order name: CT Chest For PE Angio; Complete Time: 09:55 [facility] 06/25 08:33 Order name: EKG; Complete Time: 08:34 [facility] 06/25 08:33 Order name: Cardiac monitoring; Complete Time: 09:04 [facility] 06/25 08:33 Order name: EKG - Nurse/Tech; Complete Time: 09:04 [facility] 06/25 08:33 Order name: IV Saline Lock; Complete Time: 08:45 [facility] 06/25 08:33 Order name: Labs collected and sent; Complete Time: 08:45 [facility] 06/25 08:33 Order name: O2 Per Protocol; Complete Time: 08:45 [facility] 06/25 08:33 Order name: O2 Sat Monitoring; Complete Time: 08:45 [facility] Administered Medications: 09:07 Drug: Zofran (Ondansetron) 4 mg Route: IVP; Site: left antecubital; vg1 10:23 Follow up: Response: No adverse reaction vg1 09:09 Drug: morphine 4 mg Route: IVP; Site: left antecubital; vg1 10:22 Follow up: Response: No adverse reaction; Marked relief of symptoms vg1 Disposition: 14:15 Co-signature as Attending Physician, Kelton Segovia MD I agree with the assessment and rn plan of care. Attestation: The patient's history, exam findings, diagnostics, and a summary of any interventions or procedures was reviewed in detail with Jarrett LEYVA. Disposition Summary: 06/25/21 12:07 Discharge Ordered Location: Home [facility] Condition: Stable [facility] Diagnosis - Chest pain, unspecified [facility] Followup: [facility] - With: Marcelo Carroll MD - When: 2 - 3 days - Reason: Recheck today's complaints, Continuance of care, Re-evaluation by your physician Discharge Instructions: - Discharge Summary Sheet yu - Nonspecific Chest Pain, Adult [facility] Forms: - Medication Reconciliation Form yu - Thank You Letter jeanna - Antibiotic Education jeanna - Prescription Opioid Use yu Prescriptions: - orphenadrine citrate 100 mg Oral Tablet Sustained Release - take 1 tablet by ORAL route 2 times per day As needed; 20 tablet; Refills: 0, m Product Selection Permitted Signatures: Dispatcher [employer] Jarrett Washington PA PA jmm Nieto, Roman, MD MD rn Garcia, Kaitlin, RN RN vg1 Shane Castellano RN RN ll1
--- NOTE | 2021-06-25 12:07 | ER ---
Nurse's Notes [facility] Name: Kiarra Kidd Age: 46 yrs Sex: Female : 1975 Arrival Date: 06/25/2021 Time: 08:16 Bed 14 Private MD: Darron Cronin R Diagnosis: Chest pain, unspecified Presentation: 06/25 08:45 Chief complaint: Patient states: Epigastric pain that wraps around the left side to the vg1 back that began on 06/21/2021 ; states diarrhea yesterday; denies NV or SOB. Coronavirus screen: Vaccine status: Patient reports receiving the 2nd dose of the covid vaccine. Ebola Screen: Patient negative for fever greater than or equal to 101.5 degrees Fahrenheit, and additional compatible Ebola Virus Disease symptoms. Initial Sepsis Screen: Does the patient meet any 2 criteria? No. Patient's initial sepsis screen is negative. Does the patient have a suspected source of infection? No. Patient's initial sepsis screen is negative. Risk Assessment: Do you want to hurt yourself or someone else? Patient reports no desire to harm self or others. Onset of symptoms was June 21, 2021. 08:45 Method Of Arrival: Ambulatory vg1 08:45 Acuity: SIRIA 2 vg1 Triage Assessment: 08:47 General: Appears uncomfortable, Behavior is calm, cooperative. Pain: Complains of pain vg1 in back and epigastric area Pain currently is 9 out of 10 on a pain scale. Quality of pain is described as burning, Pain began 06/21/2021. EENT: No signs and/or symptoms were reported regarding the EENT system. Neuro: Level of Consciousness is awake, alert, obeys commands, Oriented to person, place, time, situation. Cardiovascular: Patient's skin is warm and dry. Respiratory: Airway is patent Respiratory effort is even, unlabored, Denies shortness of breath. GI: Reports diarrhea, Patient currently denies nausea, vomiting. : No signs and/or symptoms were reported regarding the genitourinary system. Derm: Skin is intact, is healthy with good turgor. Musculoskeletal: Circulation, motion, and sensation intact. 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 - Social history:: Smoking status: Patient denies any tobacco usage or history of. Screenin:49 Abuse screen: Denies threats or abuse. Nutritional screening: No deficits noted. vg1 Tuberculosis screening: No symptoms or risk factors identified. Fall Risk No fall in past 12 months (0 pts). No secondary diagnosis (0 pts). IV access (20 points). Ambulatory Aid- None/Bed Rest/Nurse Assist (0 pts). Gait- Normal/Bed Rest/Wheelchair (0 pts) Mental Status- Oriented to own ability (0 pts). Total Wyman Fall Scale indicates No Risk (0-24 pts). Assessment: 08:50 Pain: Pain does not radiate. vg1 10:21 Reassessment: Patient appears in no apparent distress at this time. Patient and/or vg1 family updated on plan of care and expected duration. Pain level reassessed. Patient is alert, oriented x 3, equal unlabored respirations, skin warm/dry/pink. states 'feeling dizzy'; provider notified. Patient denies pain at this time. 11:29 Reassessment: Patient appears in no apparent distress at this time. Patient and/or vg1 family updated on plan of care and expected duration. Pain level reassessed. Patient is alert, oriented x 3, equal unlabored respirations, skin warm/dry/pink. States ABD pain is 3/10; stated 'pain isnt bad as earlier but the pain medication did help it'. Patient states feeling better. 12:45 Reassessment: Patient appears in no apparent distress at this time. No changes from vg1 previously documented assessment. Patient and/or family updated on plan of care and expected duration. Pain level reassessed. Patient is alert, oriented x 3, equal unlabored respirations, skin warm/dry/pink. Vital Signs: 08:37 BP 162 / 100; Pulse 80; Resp 12; Pulse Ox 98% ; vg1 08:45 BP 157 / 114; Pulse 90; Resp 12; Temp 97.7; Pulse Ox 100% ; Weight 81.65 kg; Height 5 vg1 ft. 1 in. (154.94 cm); Pain 9/10; 09:00 BP 169 / 98; Pulse 78; Resp 18; Pulse Ox 98% ; vg1 10:00 BP 152 / 92; Pulse 74; Resp 14; Pulse Ox 96% on R/A; vg1 11:00 BP 153 / 97; Pulse 76; Resp 18; Pulse Ox 99% ; vg1 08:45 Body Mass Index 34.01 (81.65 kg, 154.94 cm) vg1 ED Course: 08:16 Patient arrived in ED. am2 08:16 Darron Cronin MD is Private Physician. am2 08:22 Jarrett Gan PA is [facility]. jmm 08:22 Kelton Segovia MD is Attending Physician. jmm 08:23 Kaitlin Whittaker, GEETA is Primary Nurse. vg1 08:31 Arm band placed on Patient placed in an exam room, on a stretcher. ll1 08:38 No provider procedures requiring assistance completed. Initial lab(s) drawn, by pa, vg1 sent to lab. Inserted saline lock: 20 gauge in left antecubital area, using aseptic technique. Blood collected. Patient maintains SpO2 saturation greater than 95% on room air. 08:47 Triage completed. vg1 08:49 Patient has correct armband on for positive identification. Placed in gown. Bed in low vg1 position. Call light in reach. Side rails up X 1. cafeteria monitor on. Pulse ox on. NIBP on. 09:15 EKG done, by ED staff, reviewed by Jarrett LEYVA. em1 09:44 CT Chest For PE Angio In Process Unspecified. EDMS 09:51 XRAY Chest (1 view) In Process Unspecified. EDMS 12:06 Marcelo Carroll MD is Referral Physician. jmm 12:45 IV discontinued, intact, bleeding controlled, No redness/swelling at site. Pressure vg1 dressing applied. Administered Medications: 09:07 Drug: Zofran (Ondansetron) 4 mg Route: IVP; Site: left antecubital; vg1 10:23 Follow up: Response: No adverse reaction vg1 09:09 Drug: morphine 4 mg Route: IVP; Site: left antecubital; vg1 10:22 Follow up: Response: No adverse reaction; Marked relief of symptoms vg1 Outcome: 12:07 Discharge ordered by MD. meeks 12:45 Discharged to home ambulatory. vg1 12:45 Condition: good 12:45 Discharge instructions given to patient, Instructed on discharge instructions, follow up and referral plans. medication usage, Demonstrated understanding of instructions, follow-up care, medications, Prescriptions given X 1. 12:45 Patient left the ED. vg1 Signatures: Dispatcher [employer] EDMS Jarrett Gan PA PA jmm Martinez, Eric em1 Beatriz Ventura Victoria, RN RN vg1 Shane Castellano RN RN ll1 Corrections: (The following items were deleted from the chart) 10:24 10:21 Reassessment: Patient appears in no apparent distress at this time. Patient vg1 and/or family updated on plan of care and expected duration. Pain level reassessed. Patient is alert, oriented x 3, equal unlabored respirations, skin warm/dry/pink. Patient denies pain at this time. vg1
[2021-06-25 13:20] VITALS: TEMP 97.7
[2021-06-25 13:23] VITALS: BP 153/97; O2SAT 99
--- NOTE | 2021-06-26 10:19 | EKG ---
Test Date: 2021-06-25 Test Time: 09:03:32 Principal Archaeologist: COSMO MEASUREMENT RESULTS: Intervals: Rate: 79 WV: 162 QRSD: 82 QT: 386 QTc: 442 [place]: P: 28 WV: 162 QRS: 34 T: 31 INTERPRETIVE STATEMENTS: Normal sinus rhythm Normal ECG Compared to ECG 07/16/2019 11:47:40 Sinus arrhythmia no longer present Electronically Signed On 06-26-21 10:14:51 HOUSING PROPERTY MANAGER by Remington Taylor
== END 2021-06-25 12:45 | disposition home or self-care (01) ==
LOC: ER 08:15
DX: R07.9 Chest pain, unspecified (principal); I10 Essential (primary) hypertension
CPT/HCPCS: 36415; 71045; 71275; 80048; 80076; 83735; 83880; 84484; 85025; 85379; 85610; 93005; 96374; 96375; 99285; J2405; Q9967

== ENCOUNTER → 2023-07-05 | Emergency (ER) | payer OTHER ==
--- OUTSIDE RECORDS SUMMARY | 2023-07-05 11:03 | XMS REPORT | Continuity of Care Document ---
Author Name Unknown Address [address] [place] [address] [address] thconnect Address [address] [place] [address] 1 [address] [place] [address] Care Team Providers Care Patient Registration Representative Name Role Phone SANDEEP BARBER Attending Clinician Unavailab JEN Addison Attending Clinician Unavail JUDY Hunter Attending Clinician Unavailable [id number] Attending Clinician Unavailable Payers Payer Name Policy Type Policy Number Effective Date Expirati on Date Source AET[employer] MP [facility]: [facility] OFF STAND 9 [id number] 2023 00:00:00 Social History Social Habit Start Date Stop Date Quantity Comments Source Sexual orientation K mee Daley - External Alcohol intake 2023-02-27 00:00:00 2023-02-27 00:00:00 Current drinker of alcohol (finding) Yudith Daley - External History of Social function 2023-02-27 00:00:00 2023-02-27 00:00:00 Yudith Daley - External Alcohol Comment 2023-02-13 00:00:00 2023-02-13 00:00:00 social Yudith Daley - External Sex Ass[birth year] At 1975 00:00:00 1975 00:00:00 Yudith Vaca Smoking Status Start Date Stop Date Source Never smoked tobacco Yudith Daely - [place] Medications Ordered Medication Name Filled Medication Name Start Date Stop Date Current Medication? Ordering Clinician Indication Dosage Frequency Signature (SIG) Comments Components Source Nitrofurant oin Monohyd Macro 100 MG oral Capsule 2022-05 00:00: 00 Yes [id number] 100mg Take 1 capsule (100 mg total) by mouth 2 times daily. Yudith shea Amlodipine Besylate 10 MG oral Tablet 2022-05 00:00: 00 Yes [id number] 10mg Take 1 tablet (10 mg total) by mouth daily. Yudith shea Carvedilol (Coreg) 3.125 MG oral Tablet 2022-05 009 00:00: 00 Yes [id number] 3.125mg Take 1 tablet (3.125 mg total) by mouth 2 times daily. Yudith shea Losartan Potassium-H CTZ 50-12.5 MG oral Tablet 2022-0509 00:00: 00 02-27 00:00 :00 No 1{tbl} Take 1 tablet by mouth daily. Yudith shea Losartan Potassium-H CTZ 50-12.5 MG oral Tablet 2022-05 0 00:00: 00 Yes [id number] 1{tbl} Take 1 tablet by mouth daily. Yudith shea Amlodipine Besylate (NORVASC) 5 MG oral Tablet 2022-05 0 00:00: 00 Yes [id number] 5mg Take 1 tablet (5 mg total) by mouth daily. Yudith shea Amlodipine Besylate (NORVASC) 5 MG oral Tablet 2022-05 0 00:00: 00 02-27 00:00 :00 No [id number] 5mg Take 1 tablet (5 mg total) by mouth daily. Yudith shea Vital Signs Vital Name Observation Time Observation Value Comments S jackelyn Systolic blood pressure 2023-02-27 15:13:00 142 mm[Hg] Yudith rodriguez - External Diastolic blood pressure 2023-02-27 15:13:00 89 mm[Hg] Yudith rodriguez - External Heart rate 2023-02-27 14:15:00 79 /min Hardy Daley - External Body temperature 2023-02-27 14:15:00 36 Terrie Yudith Daley - External Respiratory rate 2023-02-27 14:15:00 15 /min Yudith Daley - External Body height 2023-02-27 14:15:00 154.9 cm Hellen ey Seybold - External Body weight 2023-02-27 14:15:00 79.833 kg Hellen ey Seybold - External BMI 2023-02-27 14:15:00 33.25 kg/m2 Hellen ey Seybold - External Systolic blood pressure 2023-02-13 16:23:00 142 mm[Hg] Yudith Grahamybo ld - External Diastolic blood pressure 2023-02-13 16:23:00 110 mm[Hg] Yudith Grahamybo ld - External Heart rate 2023-02-13 16:23:00 97 /min Hardy y Seybold - External Body temperature 2023-02-13 16:23:00 36.78 Terrie Yudith Seybold - External Respiratory rate 2023-02-13 16:23:00 15 /min Yudith Seybold - External Body height 2023-02-13 16:23:00 154.9 cm Hellen ey Seybold - External Body weight 2023-02-13 16:23:00 81.194 kg Hellen ey Seybold - External BMI 2023-02-13 16:23:00 33.82 kg/m2 Hellen ey Seybold - External Encounters Start Date/Time End Date/Time Encounter Type Admission Type Attending [facility] Care Department Encounter ID Source 2023-04-29 09:30:00 2023-04-29 09:30:00 Outpatient SANDEEP BARBER [id number] [facility] 2023-04-29 00:00:00 2023-04-29 00:00:00 Outpatient SANDEEP BARBER [id number] [facility] 2023-04-25 10:30:00 2023-04-25 10:30:00 Outpatient JEN URIBE [id number] Y[facility] 2023-04-08 00:00:00 2023-04-08 00:00:00 Outpatient SANDEEP BARBER [id number] [facility] 2023-03-31 10:30:00 2023-03-31 10:30:00 Outpatient JUDY GARCIA [id number] [facility] 2023-03-31 00:00:00 2023-03-31 00:00:00 Outpatient SANDEEP BARBER YUDITH [id number] Y[facility] 2023-03-20 10:30:00 2023-03-20 10:30:00 Outpatient JUDY GARCIA YUDITH [id number] [facility] 2023-03-18 10:30:00 2023-03-18 10:30:00 Outpatient JEN URIBE [facility] [id number] [facility] 2023-03-06 12:30:00 2023-03-06 12:30:00 Outpatient YUDITH YUDITH [id number] [facility] 2023-02-27 09:30:00 2023-02-27 09:30:00 Outpatient SANDEEP BARBER YUDITH ZURITA [id number] [facility] 2023-02-27 00:00:00 2023-02-27 00:00:00 Outpatient YUDITH ZURITA [id number] [facility] 2023-02-25 08:30:00 2023-02-25 08:30:00 Outpatient LAB90 [facility]UDITH [facility]UR[facility] [id number] [facility] 2023-02-18 00:00:00 2023-02-18 00:00:00 Outpatient SANDEEP BARBER YUDITH ZURITA [id number] [facility] 2023-02-18 00:00:00 2023-02-18 00:00:00 Outpatient SANDEEP BARBER YUDITH UZRITA [id number] [facility] 2023-02-18 00:00:00 2023-02-18 00:00:00 Outpatient SANDEEP BARBER YUDITH ZURITA [id number] [facility] 2023-02-17 00:00:00 2023-02-17 00:00:00 Outpatient SANDEEP BARBER YUDITH ZURITA [id number] [facility] 2023-02-13 12:20:00 2023-02-13 12:20:00 Outpatient LAB90 YUDITH ZURITA [id number] [facility] 2023-02-13 11:30:00 2023-02-13 11:30:00 Outpatient SANDEEP BARBER YUDITH ZURITA [id number] [facility]
--- NOTE | 2023-07-05 11:12 | ER ---
Nurse's Notes [facility] Name: Kiarra Kidd Age: 48 yrs Sex: Female : 1975 Arrival Date: 07/05/2023 Time: 11:00 Bed 11 Private MD: Naima Sher Diagnosis: Ingrown left great toenail with surrounding cellulitis. Presentation: 07/05 11:10 Chief complaint: Left great toe pain and swelling x 2 weeks. Coronavirus screen: At hb this time, the client does not indicate any symptoms associated with coronavirus-19. Ebola Screen: No symptoms or risks identified at this time. Initial Sepsis Screen: Does the patient meet any 2 criteria? No. Patient's initial sepsis screen is negative. Does the patient have a suspected source of infection? No. Patient's initial sepsis screen is negative. Risk Assessment: Do you want to hurt yourself or someone else? Patient reports no desire to harm self or others. Onset of symptoms was June 21, 2023. 11:10 Method Of Arrival: Ambulatory hb 11:10 Acuity: SIRIA 4 hb Triage Assessment: 11:11 General: Appears in no apparent distress. Behavior is calm, cooperative. Pain: Pain hb currently is 5 out of 10 on a pain scale. Neuro: Level of Consciousness is awake, alert, obeys commands, Oriented to person, place, time, situation. Cardiovascular: Patient's skin is warm and dry. Respiratory: Respiratory effort is even, unlabored, Respiratory pattern is regular, symmetrical. 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 - Social history:: Smoking status: Patient denies any tobacco usage or history of. Screenin:19 [facility] Fall Risk Assessment (Adult) History of falling in the last 3 months, cp4 including since admission No falls in past 3 months (0 pts) Confusion or Disorientation No (0 pts) Intoxicated or Sedated No (0 pts) Impaired Gait No (0 pts) Mobility Assist Device Used No (0 pt) Altered Elimination No (0 pt) Score/Fall Risk Level 0 - 2 = Low Risk Oriented to surroundings, Maintained a safe environment, Educated pt \T\ family on fall prevention, incl call for assistance when getting out of bed, Assessed \T\ reinforced patient's understanding of fall precautions, Provided non-skid footwear, Hourly rounding (assess needs \T\ fall precautionary measures) done. Abuse screen: Denies threats or abuse. Nutritional screening: No deficits noted. Tuberculosis screening: No symptoms or risk factors identified. Assessment: 11:19 General: Appears in no apparent distress. Behavior is calm, cooperative, appropriate cp4 for age. Derm: Abscess located on left great toe. Vital Signs: 11:10 BP 188 / 111; Pulse 76; Resp 16; Temp 98.1; Pulse Ox 100% on R/A; Pain 5/10; hb 11:10 Pain Scale: Adult hb ED Course: 11:03 Patient arrived in ED. mr 11:04 Naima Sher is Private Physician. mr 11:05 Deepthi Perez is Primary Nurse. cp4 11:06 [facility] 11:06 Rufus Gu MD is Attending Physician. [facility] 11:11 Triage completed. 11:11 Arm band placed on. 11:19 Bed in low position. Call light in reach. Side rails up X 1. Provided Education on: cp4 ingrown toe nail. 11:19 No provider procedures requiring assistance completed. Patient did not have IV access cp4 during this emergency room visit. Administered Medications: No medications were administered Medication: 11:19 VIS not applicable for this client. cp4 Outcome: 11:11 Discharge ordered by . [facility] 11:19 Discharged to home ambulatory, cp4 11:19 Condition: stable 11:19 Discharge instructions given to patient, Instructed on discharge instructions, follow up and referral plans. medication usage, Demonstrated understanding of instructions, follow-up care, medications, Prescriptions given X 2, 11:22 Patient left the ED. cp4 Signatures: Daniela Gustafson, Reg Reg mr Salazar, Kenisha, RN RN Tiffany Harris FNP [place] [id number] Deepthi Perez cp4
--- NOTE | 2023-07-05 11:12 | EDPHYS ---
Physician Documentation [facility] Name: Kiarra Kidd Age: 48 yrs Sex: Female : 1975 Arrival Date: 07/05/2023 Time: 11:00 Bed 11 Private MD: Naima Sher ED Physician Rufus Gu HPI: 07/05 11:11 This 48 yrs old Female presents to ER via Ambulatory with complaints of jh7 Ingrown toe nail. 11:11 Onset: The symptoms/episode began/occurred 1 week(s) ago. Associated signs and jh7 symptoms: The patient has no apparent associated signs or symptoms. 48-year-old female presents to the ER with a left ingrown toenail for 1 week. She reports a history of hypertension and states that she forgot to take her medication this morning. Only reports pain around the toenail. No other symptoms at this time.. 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 - Social history:: Smoking status: Patient denies any tobacco usage or history of. ROS: 11:11 Constitutional: Negative for fever, chills, and weight loss, Eyes: Negative for injury, jh7 pain, redness, and discharge, Neck: Negative for injury, pain, and swelling, Cardiovascular: Negative for chest pain, palpitations, and edema, Respiratory: Negative for shortness of breath, cough, wheezing, and pleuritic chest pain, Abdomen/GI: Negative for abdominal pain, nausea, vomiting, diarrhea, and constipation, Neuro: Negative for headache, weakness, numbness, tingling, and seizure, 11:11 MS/extremity: Positive for Left great ingrown toenail, 11:11 Skin: 11:11 Skin: Positive for cellulitis, of the Left great toe, 11:11 All other systems are negative, Exam: 11:11 Constitutional: This is a well developed, well nourished patient who is awake, alert, jh7 and in no acute distress. Head/Face: Normocephalic, atraumatic. Neck: Trachea midline, no thyromegaly or masses palpated, and no cervical lymphadenopathy. Supple, full range of motion without nuchal rigidity, or vertebral point tenderness. No Meningismus. Cardiovascular: Regular rate and rhythm with a normal S1 and S2. No gallops, murmurs, or rubs. Normal PMI, no JVD. No pulse deficits. Respiratory: Lungs have equal breath sounds bilaterally, clear to auscultation and percussion. No rales, rhonchi or wheezes noted. No increased work of breathing, no retractions or nasal flaring. Neuro: Awake and alert, GCS 15, oriented to person, place, time, and situation. Normal gait. 11:11 Musculoskeletal/extremity: Extremities: noted in the Left great toe: Ingrown nail noted on the lateral aspect of the left great toe with very mild surrounding cellulitis, ROM: no acute changes, Circulation is intact in all extremities. Sensation intact. Vital Signs: 11:10 BP 188 / 111; Pulse 76; Resp 16; Temp 98.1; Pulse Ox 100% on R/A; Pain 5/10; hb 11:10 Pain Scale: Adult hb MDM: 11:06 Patient medically screened. [facility] 11:11 Differential diagnosis: bacterial infection, Left ingrown toenail. Data reviewed: vital [facility] signs, nurses notes. Historians other than the Patient: Spouse/Significant Other: . Care significantly affected by the following chronic conditions: Hypertension. 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 Special discussion: I have referred the patient to see his PCP for further evaluation of high blood pressure. Administered Medications: No medications were administered Disposition: 12:42 Co-signature as Attending Physician, Rufus Gu MD I agree with the assessment and kdr plan of care. Disposition Summary: 07/05/23 11:11 Discharge Ordered Notes: Location: Home [facility] Problem: new [facility] Symptoms: are unchanged [facility] Condition: Stable [facility] Diagnosis - Ingrown left great toenail with surrounding cellulitis. [facility] Followup: [facility] - With: Private Physician - When: 2 - 3 days - Reason: Recheck today's complaints Discharge Instructions: - Discharge Summary Sheet [facility] - Ingrown Toenail [facility] Forms: - Medication Reconciliation Form [facility] - Thank You Letter [facility] - Antibiotic Education [facility] - Prescription Opioid Use [facility] - Patient Portal Instructions [facility] - Leadership Thank You Letter [facility] Prescriptions: - mupirocin 2 % Topical ointment - apply 1 application TOPICAL route 3 times per day for 7 days; 22 gram; Refills: [facility] 0, Product Selection Permitted - Bactrim DS 800-160 mg Oral Tablet - take 1 tablet ORAL route every 12 hours for 10 days; 20 tablet; Refills: 0, jh7 Product Selection Permitted Signatures: Rufus Gu MD MD kdr Baxter, Heather, RN RN Tiffany Harris FNP EVENT TECHNICIAN [facility]
[2023-07-05 12:05] VITALS: BP 188/111; TEMP 98.1; O2SAT 100
== END ==
LOC: ER 11:00
DX: L03.032 Cellulitis of left toe (principal); I10 Essential (primary) hypertension
CPT/HCPCS: 99283